=== PATIENT | male | born 1965 | race African-American/Black ===

== ENCOUNTER 2018-07-01 05:31 | Emergency (ER) | payer BC ==
[2018-07-01] MEDS ORDERED: ACETAMINOPHEN 325 MG TABLET PO ONE (05:58)
--- NOTE | 2018-07-01 06:55 | RADIOLOGY REPORT (SQ) ---
EXAM DESCRIPTION: XR SHOULDER 2 OR MORE VIEWS COMPLETED DATE/TME: 07/01/2018 00:00 CLINICAL HISTORY: 53 years, Male, possible dislocation COMPARISON: None. FINDINGS/impression: Anterior inferior dislocation of the humeral head which resides beneath the coracoid process. There is a curvilinear fracture of the posterior portion of the humeral head. Degenerative changes in the AC joint. Visualized lung burch are clear.
[2018-07-01] MEDS ORDERED: FENTANYL CITRATE INJ/PF 100 MCG/2 ML AMPUL IV ONE (07:29)
[2018-07-01] MEDS ORDERED: PROPOFOL INJ 200 MG/20 ML VIAL IV ONE (08:02)
--- NOTE | 2018-07-01 09:04 | ER Document Report ---
ED Extremity Problem, Upper - General Chief Complaint: Shoulder Injury Stated Complaint: ARM INJURY Time Seen by Provider: 07/01/18 07:24 - HPI Notes: Patient presents to the emergency department for evaluation of a right shoulder dislocation. This is not a new problem for this patient. He has had 3 prior dislocations. 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 He woke this morning and stretched when his shoulder became dislocated. He was unable to get in on his own. He denies any traumatic injury at this time. He reports his pain at a 10 out of 10. He denies any numbness or tingling. No other injuries. Patient has had conscious sedation in the past without any reactions. - Related Data Allergies/Adverse Reactions: No Known Allergies Allergy (Verified 07/01/18 07:48) Past Medical History - General Information source: Patient - Social History Smoking Status: Current Some Day Smoker Chew tobacco use (# tins/day): No Frequency of alcohol use: None Drug Abuse: None Family History: Reviewed & Not Pertinent Patient has suicidal ideation: No Patient has homicidal ideation: No - Past Medical History Cardiac Medical History: Reports: None Renal/ Medical History: Denies: Hx Peritoneal Dialysis Review of Systems - Review of Systems Constitutional: No symptoms reported EENT: No symptoms reported Cardiovascular: No symptoms reported, See HPI Respiratory: No symptoms reported Gastrointestinal: No symptoms reported Male Genitourinary: No symptoms reported Musculoskeletal: No symptoms reported Skin: No symptoms reported Neurological/Psychological: No symptoms reported Physical Exam - Vital signs Vitals: Temp Pulse Resp BP Pulse Ox 98.1 F 55 L 18 178/108 H 100 07/01/18 05:37 07/01/18 05:37 07/01/18 05:37 07/01/18 05:37 07/01/18 05:37 Interpretation: Hypertensive - Notes Notes: Patient is awake and alert, moderate amount of distress. He is diaphoretic and clearly uncomfortable. Head is normocephalic and atraumatic. Pupils are equal, round, reactive to light. Mallampati 1. Heart is regular rate and rhythm without murmur, lungs are clear to oscillation bilaterally. Abdomen soft, nontender, normoactive bowel sounds. Patient is awake and alert, oriented x3. No focal neurological deficits. Examination of the right upper extremity is obvious deformity at the shoulder with anterior sulcus sign. No diminished sensation throughout the distribution of the axillary nerve. Radial pulses 2+, strength is plus 5 out of 5 at the elbow, wrist, fingers, thumb. Course - Re-evaluation Re-evalutation: 07/01/18 09:09 Patient presents to the emergency department for evaluation. I did see the patient after I was notified of the findings of shoulder dislocation and fracture. He was medicated with fentanyl with significant relief. Decision was made to proceed with conscious sedation and reduction of this right shoulder dislocation. Please see attached procedure note. Patient currently resting comfortably, post procedural sedation protocols followed. Will recheck. 07/01/18 09:40 patient significantly improved. Has no memory of the reduction. My suspicion is this is a nonunion fracture given the lack of traumatic etiology today. We did discuss at length his need for follow-up. I also explained to him that he should have his blood pressure addressed. Certainly his acutely elevated blood pressure initially was secondary to pain, but he remains mildly elevated here. We discussed the consequences of long-term uncontrolled hypertension and he voiced understanding. We will refer him on to Orthopedics and primary care. He is to return to the emergency department with worsening or new concerning symptoms. 07/01/18 09:43 - Vital Signs Vital signs: Temp Pulse Resp BP Pulse Ox 98.1 F 70 14 140/101 H 100 07/01/18 05:37 07/01/18 09:20 07/01/18 09:20 07/01/18 09:20 07/01/18 09:20 Procedures - Conscious Sedation Conscious sedation Time started: 08:50 Time completed: 08:58 Consent obtained: Yes Indication: Reduction of right shoulder dislocation ASA Classification: Choose one classification - ASA 1 Normal healthy pt.: P1. - ASA Classification Airway Evaluation: Normal anatomy Mallampati Classification: Class 1 Used during procedure: Suction available, IV access obtained, Pulse ox on pt., building services engineer on pt. Medications administered: Other - Propofol, 100 mg total I personally performed/intraservice time: Sedation, Procedure, 30 min or less Complications: No - Joint Reduction/Fracture Care Right Shoulder Time completed: 08:50 Consent obtained: Yes Conscious sedation: Yes Pre-procedure NV exam: Yes Fracture: Closed Post-procedure NV exam: Yes Post-reduction x-ray: Joint reduced Reduction attempts: 2 Complications: No Notes: 07/01/18 09:07 Consent was signed and placed on the chart. He was placed on a monitor with IV fluids, oxygen per nasal cannula. Suction was ready and at the bedside. Patient was admitted propofol and 2 bolus doses. 60 mg followed by 40 mg. After adequate analgesia was achieved, arm was flexed at the elbow and abducted. Using gentle traction and mild external rotation, the shoulder easily reduced after second attempt. Neurovascularly intact following. Patient was placed in a shoulder immobilizer again found to be intact following. No significant hemodynamic changes, patient remained well oxygenated throughout the procedure, tolerated it well. Postreduction films interpreted by myself without the radiologist as showing adequate reduction, fracture still visible. Discharge - Discharge Clinical Impression: Recurrent dislocation, right shoulder Humeral head fracture Qualifiers: Fracture healing: with delayed healing Disposition: HOME, SELF-CARE Instructions: Oral Narcotic Medication ([facility]), Shoulder Dislocation ([facility]) Additional Instructions: Maintain shoulder immobilizer till seen by orthopedics. Follow-up with primary care as well as orthopedics this week. Return to the emergency department with worsening or new concerning symptoms of any sort. Referrals: ALCIRA COE MD [ACTIVE STAFF] - Follow up as needed
--- NOTE | 2018-07-01 09:23 | RADIOLOGY REPORT (SQ) ---
EXAM DESCRIPTION: SHOULDER RIGHT 1 VIEW COMPLETED DATE/TIME: 07/01/2018 9:07 am REASON FOR STUDY: post reduction COMPARISON: AP shoulder film 07/01/2018 NUMBER OF VIEWS: AP view TECHNIQUE: AP viewacquired of the right shoulder. LIMITATIONS: None. FINDINGS: Post closed reduction of a right shoulder dislocation. On the single AP view, there is no rmal alignment at the right glenohumeral and acromioclavicular joint. 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 [place] l calcifications/ossification at the AC joint. IMPRESSION: Post closed reduction, right glenohumeral dislocation with grossly normal alignment on t he single AP view. TECHNICAL DOCUMENTATION: JOB ID: [id number] [employer]- All Rights Reserved Reading location - IP/workstation name: [email or web address]
[2018-07-01] MEDS ORDERED: HYDROCODONE/ACETAMINOPHEN 5-325 MG (6 TAB/ER DISP) PO PRN (09:41)
[2018-07-01 10:16] VITALS: BP 136/93
== END 2018-07-01 10:05 | disposition home or self-care (01) ==
LOC: ER 05:31
DX: M24.411 Recurrent dislocation, right shoulder (principal); F17.200 Nicotine dependence, unspecified, uncomplicated
CPT/HCPCS: 99283; 99152; 96374; 73020; 73030; 23650; L3650 ×2; J3010; J2704